=== PATIENT | female | born 1970 | race African-American/Black ===

== ENCOUNTER 2023-11-30 10:30 | Emergency (ER) | payer SELFPAY ==
[~2023-11-30] VITALS: Ht 149.9 cm; Wt 66.0 kg
[2023-11-30 10:38] VITALS: BP 118/80; PULSE 85; RESP 16; TEMP 98.7; O2SAT 99
[2023-11-30] MEDS ORDERED: GABA-532 MT (11:09)
== END 2023-11-30 12:45 | disposition home or self-care (01) ==
LOC: ER 10:53
DX: Z76.0 Encounter for issue of repeat prescription (principal); I10 Essential (primary) hypertension; Z98.890 Other specified postprocedural states; F10.20 Alcohol dependence, uncomplicated; Y90.9 Presence of alcohol in blood, level not specified
CPT/HCPCS: 99281